=== PATIENT | female | born 1935 | race Caucasian/White ===

== ENCOUNTER 2020-07-18 16:17 | Outpatient (RCR) | payer MEDICARE, SELFPAY ==
[2020-07-18] MEDS: COVID-19 VACC, MRNA(PFIZER)/PF 30 MCG/0.3 ML SYRINGE IM (10:24)
[2020-08-08] MEDS: COVID-19 VACC, MRNA(PFIZER)/PF 30 MCG/0.3 ML SYRINGE IM (09:53)
== END 2020-07-18 23:59 ==
LOC: IMMUN 16:17
PROVIDERS: PCP Preventive Medicine Occupational Medicine; Referring Provider Family Medicine; Visit Provider Family Medicine
DX: Z23 Encounter for immunization (principal)
CPT/HCPCS: 0001A; 0002A